=== PATIENT | male | born 1995 ===

== ENCOUNTER 2016-07-25 13:06 | Emergency (ER) | payer OTHER ==
[2016-07-25 13:06] VITALS: BMI 31.3
[2016-07-25 13:11] VITALS: O2SAT 100
[2016-07-25] MEDS ORDERED: Albuterol 0.083% Inhal Sol (2.5 mg/3 mL) UD ONE (13:53)
[2016-07-25] MEDS: Albuterol 0.083% Inhal Sol (2.5 mg/3 mL) UD INH SCH ×2 (13:55→14:10)
--- NOTE | 2016-07-25 14:24 | C.PDOC ---
History Of Present Illness 20 y/o male presents to the ED with complains of persistent cough and wheezing. Pt states he was seen a few months ago diagnosed with bronchitis, he never filled prescription due to cost but has been using inhaler. Denies fever, chills , SOB, chest pain, vomiting or any other complaints. Time Seen by Provider: 07/25/16 13:20 Chief Complaint (Nursing): Cough, Cold, Congestion History Per: Patient History/Exam Limitations: no limitations Onset/Duration Of Symptoms: Days, Persistent Severity: Moderate Reports Recently: Treated By A Physician Recent travel outside of the [place]: No Past Medical History Reviewed: Historical Data, Nursing Documentation, Vital Signs Vital Signs: Last Vital Signs Temp 97.8 F 07/25/16 13:09 Pulse 84 07/25/16 13:09 Resp 20 07/25/16 13:09 BP 150/84 07/25/16 13:09 Pulse Ox 100 07/25/16 14:26 Family History: States: Unknown Family Hx - Social History Hx Tobacco Use: No Hx Alcohol Use: Yes Hx Substance Use: No - Immunization History Hx Tetanus Toxoid Vaccination: No Hx Influenza Vaccination: No Hx Pneumococcal Vaccination: No Review Of Systems Except As Marked, All Systems Reviewed And Found Negative. Constitutional: Negative for: Fever, Chills Cardiovascular: Negative for: Chest Pain Respiratory: Positive for: Cough, Wheezing. Negative for: Shortness of Breath Gastrointestinal: Negative for: Vomiting Physical Exam - Physical Exam Appears: Non-toxic, No Acute Distress Skin: Warm, Dry, No Rash Head: Atraumatic, Normacephalic Ear(s): Bilateral: Normal Nose: Normal Oral Mucosa: Moist Throat: Normal, No Erythema Neck: Normal, Normal ROM, Supple Chest: Symmetrical, No Tenderness Cardiovascular: Rhythm Regular, No Murmur Respiratory: Normal Breath Sounds, No Accessory Muscle Use, No Rales, No Rhonchi , No Wheezing Gastrointestinal/Abdominal: Soft, No Tenderness Extremity: Normal ROM Extremity: Bilateral: Atraumatic Neurological/Psych: Oriented x3, Normal Speech ED Course And Treatment O2 Sat by Pulse Oximetry: 100 (room air) Pulse Ox Interpretation: Normal Progress Note: Plan: CXR, neb treatment Disposition - Disposition Referrals: [facility] [Outside] [facility] [Outside] Disposition: HOME/ ROUTINE Disposition Time: 15:29 Condition: STABLE Additional Instructions: Follow up in Clinic within 1-2 days. Return to Ed if feel worse. Prescriptions: predniSONE [predniSONE Tab] 2 tab PO DAILY #8 tab Promethazine HCl/Codeine [Prometh-Codein 6.25-10 mg/5 ml] 5 ml PO .Q4-6H #150 ml Albuterol HFA [Ventolin HFA 90 mcg/actuation (8 g)] 1 puff IH .Q4-6H #1 inhaler Instructions: Reactive Airways Disease (ED) - Clinical Impression Clinical Impression: Reactive airway disease - PA / BEARING INSPECTOR / Resident Statement MD/DO has reviewed & agrees with the documentation as recorded. - Scribe Statement The provider has reviewed the documentation as recorded by the Mario Willis All medical record entries made by the Mario were at my direction and personally dictated by me. I have reviewed the chart and agree that the record accurately reflects my personal performance of the history, physical exam, medical decision making, and the department course for this patient. I have also personally directed, reviewed, and agree with the discharge instructions and disposition.
--- NOTE | 2016-07-25 15:00 | RAD ---
HISTORY: COUGH/SOB COMPARISON: Comparison is made to 06/01/2014 TECHNIQUE: Chest PA and lateral FINDINGS: LUNGS: No evidence of new infiltrate or consolidation in the lungs. Small nodule is again noted at the right lower lung. PLEURA: No significant pleural effusion identified. No pneumothorax apparent. CARDIOVASCULAR: Normal. OSSEOUS STRUCTURES: No significant abnormalities. VISUALIZED UPPER ABDOMEN: Normal. OTHER FINDINGS: None. IMPRESSION: No evidence of acute pulmonary disease. Re- demonstration of small nodule at the right lower lung.
[2016-07-25 15:42] VITALS: BP 142/77; PULSE 86; RESP 18; TEMP 98
== END 2016-07-25 15:54 | disposition home or self-care (01) ==
LOC: C.ER 13:06
DX: J45.909 Unspecified asthma, uncomplicated (principal)